=== PATIENT | female | born 1950 | race Caucasian/White ===

== ENCOUNTER 2021-05-01 08:52 | Emergency (ER) | payer MEDICAID, SELFPAY ==
[~2021-05-01 08:52] MED LIST: ALBUTEROL INH; COLA100C2 OR; COUM1TAB17 OR; COUM1TAB19; CYMB1CAP4; DETR4CAP OR; FLEXERIL OR; HYDR25TA8 OR; LEVO25TA2 OR; LOPR100T OR; LYRI150C; LYRI300C; MS C15TA5; MS C30TA2; NEXI1CAP3 OR; OXYC10TA56; OXYC10TA97; OXYC40TA19; OXYC40TA19 OR; PENT400T OR; PREG100CA OR; REQU1TAB16 OR; ROPINIROLE; SAVELLA OR; SOMA350T OR; TRAM50TA2; ZETI10TA OR
[2021-05-01] MEDS ORDERED: METOPROLOL TARTRATE 100 MG TAB PO ONE (10:10)
[2021-05-01] MEDS ORDERED: NS 1,000 ML IV ONE (10:10)
[2021-05-01 10:48] LABS: BASO % 0.1 % (0.0-1.0); HEMATOCRIT 44.7 % (36.0-47.0); HEMOGLOBIN 14.4 g/dl (12.0-15.5); LYMPH # 1.1 10^3/uL (1.5-5.0); LYMPH % 16.3 % (24.0-44.0); MEAN CORPUSCULAR HEMOGLOBIN 28.9 pg (27.0-33.0); MEAN CORPUSCULAR HGB CONC 32.2 g/dl (32.0-36.5); MEAN CORPUSCULAR VOLUME 89.6 fl (80.0-96.0); MONO # 0.3 10^3/uL (0.0-0.8); MONO % 4.2 % (2.0-8.0); NEUTROPHILS # 5.4 10^3/uL (1.5-8.5); NEUTROPHILS % 79.1 % (36.0-66.0); PLATELET COUNT, AUTOMATED 199 10^3/uL (150-450); RED BLOOD COUNT 4.99 10^6/uL (4.00-5.40); WHITE BLOOD COUNT 6.9 10^3/uL (4.0-10.0)
[2021-05-01] MEDS ORDERED: ONDANSETRON 4MG/2ML VIAL IV ONE (11:05)
[2021-05-01 11:24] LABS: ALBUMIN 3.6 GM/DL (3.2-5.2); ALT/SGPT 14 U/L (12-78); BILIRUBIN,TOTAL 0.5 MG/DL (0.2-1.0); BLOOD UREA NITROGEN 11 MG/DL (7-18); CALCIUM LEVEL 9.8 MG/DL (8.8-10.2); CARBON DIOXIDE LEVEL 28 MEQ/L (21-32); CHLORIDE LEVEL 106 MEQ/L (98-107); CK-MB VALUE MASS < 1.0 NG/ML (<3.6); CPK CREATINE PHOSPHOKINASE 66 U/L (26-192); CREATININE FOR GFR 0.91 MG/DL (0.55-1.30); GLOMERULAR FILTRATION RATE > 60.0 (>39); GLUCOSE, FASTING 135 MG/DL (70-100); LIPASE 84 U/L (73-393); MB/CK RELATIVE INDEX 1.52 (< OR =4); POTASSIUM SERUM 4.2 MEQ/L (3.5-5.1); SODIUM LEVEL 140 MEQ/L (136-145); TOTAL PROTEIN 7.5 GM/DL (6.4-8.2); TROPONIN I < 0.02 NG/ML (< 0.10)
[2021-05-01] MEDS ORDERED: LOSARTAN 50MG TABLET PO ONE (12:25)
[2021-05-01] MEDS ORDERED: ACETAMINOPHEN TAB 650MG DOSE (2X325MG) PO ONE (13:35)
--- NOTE | 2021-05-01 14:00 | ECGEPIP ---
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
[2021-05-01 15:00] VITALS: BP 183/87
== END 2021-05-01 16:06 | disposition home or self-care (01) ==
LOC: M ED 08:52 → EDBD 08:52 → M ED 16:06
DX: F03.90 Unspecified dementia, unspecified severity, without behavioral disturbance, psychotic disturbance, mood disturbance, and anxiety (principal); G89.4 Chronic pain syndrome; R10.13 Epigastric pain; I10 Essential (primary) hypertension; J44.9 Chronic obstructive pulmonary disease, unspecified; E78.5 Hyperlipidemia, unspecified; Z85.038 Personal history of other malignant neoplasm of large intestine; Z88.8 Allergy status to other drugs, medicaments and biological substances; Z91.040 Latex allergy status; Z91.041 Radiographic dye allergy status; Z79.899 Other long term (current) drug therapy
CPT/HCPCS: 80053; 82550; 82553; 83690; 84484; 85025; 93005; 94760; 96361; 96374; 99285; J2405

== ENCOUNTER 2022-07-06 14:04 | Inpatient (IN) | payer MEDICARE, OTHER, SELFPAY ==
[~2022-07-06] VITALS: Ht 165.1 cm; Wt 70.8 kg
[2022-07-06] MEDS ORDERED: IPRATROPIUM 0.5MG/ALBUTEROL 2.5MG INH SOL UD 3ML (DUONEB) NEB ONE (14:45)
[2022-07-06] MEDS ORDERED: methylPREDNISolone 125MG 2ML VIAL IV ONE (14:50)
[2022-07-06 15:06] LABS: ABG BASE EXCESS 6.2 (-2.0-2.0); ABG HCO3 30.9 MEQ/L (22.0-26.0); ABG O2 SATURATION 95.2 % (95.0-99.0); ABG PARTIAL PRESSURE CO2 44.7 mmHg (35.0-45.0); ABG PARTIAL PRESSURE O2 71.1 mmHg (75.0-100.0); ABG STANDARD HCO3 30.1 MEQ/L (22.0-26.0); ABG TOTAL CO2 32.3 MEQ/L (23.0-31.0); ABG pH (ARTERIAL) 7.458 UNITS (7.350-7.450)
[2022-07-06 15:14] LABS: BASO % 0.2 % (0.0-1.0); EOS % 0.2 % (0.0-3.0); HEMATOCRIT 40.2 % (36.0-47.0); HEMOGLOBIN 12.9 g/dl (12.0-15.5); LYMPH # 1.2 10^3/uL (1.5-5.0); LYMPH % 7.1 % (24.0-44.0); MEAN CORPUSCULAR HEMOGLOBIN 29.1 pg (27.0-33.0); MEAN CORPUSCULAR HGB CONC 32.1 g/dl (32.0-36.5); MEAN CORPUSCULAR VOLUME 90.7 fl (80.0-96.0); MONO # 1.5 10^3/uL (0.0-0.8); MONO % 9.1 % (2.0-8.0); NEUTROPHILS # 13.5 10^3/uL (1.5-8.5); NEUTROPHILS % 82.9 % (36.0-66.0); PLATELET COUNT, AUTOMATED 268 10^3/uL (150-450); RED BLOOD COUNT 4.43 10^6/uL (4.00-5.40); WHITE BLOOD COUNT 16.2 10^3/uL (4.0-10.0)
[2022-07-06 15:24] LABS: INR 1.11; PARTIAL THROMBOPLASTIN TIME 27.2 SECONDS (24.8-34.2); PROTHROMBIN TIME 14.5 SECONDS (12.5-14.5)
[2022-07-06 15:27] LABS: D-DIMER QUANT 529.6 ng/ml (<500)
[2022-07-06 16:34] LABS: ALKALINE PHOSPHATASE 88 U/L (46-116); ALT/SGPT 13 U/L (7.0-40); AST/SGOT 23 U/L (<34); BILIRUBIN,DIRECT 0.1 MG/DL (<0.4); BILIRUBIN,TOTAL 0.3 MG/DL (0.3-1.2); BLOOD UREA NITROGEN 9 MG/DL (9-23); CALCIUM LEVEL 8.9 MG/DL (8.3-10.6); CARBON DIOXIDE LEVEL 33 MMOL/L (20-31); CHLORIDE LEVEL 94 MMOL/L (98-107); CK-MB VALUE MASS 1.3 NG/ML (<3.6); CPK CREATINE PHOSPHOKINASE 240 U/L (34-145); CREATININE FOR GFR 0.75 MG/DL (0.55-1.30); GLOMERULAR FILTRATION RATE > 60.0 (>39); GLUCOSE, FASTING 139 MG/DL (74-106); MB/CK RELATIVE INDEX 0.54 (< OR =4); SODIUM LEVEL 137 MMOL/L (136-145); TOTAL PROTEIN 6.4 G/DL (5.7-8.2)
[2022-07-06 17:06] LABS: CK-MB VALUE MASS 1.2 NG/ML (<3.6); MB/CK RELATIVE INDEX 0.54 (< OR =4)
[2022-07-06] MEDS ORDERED: POTASSIUM CHLORIDE 10MEQ SR TABLET PO ONE ×2 (17:15→21:10)
[2022-07-06] MEDS ORDERED: ISOVUE-370 76% 100ML VIAL As Ordered ONE (17:24)
[2022-07-06 18:46] LABS: MB/CK RELATIVE INDEX 0.44 (< OR =4)
[2022-07-06] MEDS ORDERED: AZITHROMYCIN INJ 500 MG, VIAL MATE ADAPTER 1 EACH in NS 250 ML IV ONE (19:05)
[2022-07-06] MEDS ORDERED: cefTRIAXone SOD 1 GM in D5W MINI-BAG PLUS 50 ML IV ONE (19:05)
[2022-07-06] MEDS ORDERED: med rec comment (20:08)
[2022-07-06] MEDS ORDERED: AMLO1TAB24 PO (20:12)
[2022-07-06] MEDS ORDERED: METO50TA7 PO (20:12)
[2022-07-06] MEDS ORDERED: DULO1CAP5 PO (20:12)
[2022-07-06] MEDS ORDERED: OMEP-173 PO (20:12)
[2022-07-06] MEDS ORDERED: HOME MED LIST COMPLETE! XX SCH (20:15)
[2022-07-06] MEDS ORDERED: AZITHROMYCIN 250MG TABLET PO SCH (20:55)
[2022-07-06] MEDS ORDERED: ALBUTEROL SULFATE 2.5 MG/0.5 ML INH NEB SOLN NEB PRN (20:55)
[2022-07-06 21:35] VITALS: BP 138/78
[2022-07-06 22:00] VITALS: O2SAT 95
[2022-07-06] MEDS: NS 1,000 ML IV SCH (22:11)
[2022-07-06] MEDS: DOXYCYCLINE HYCLATE 100MG TABLET PO SCH (22:25)
[2022-07-06 23:00] VITALS: O2SAT 93
[2022-07-06 23:07] LABS: CREATININE FOR GFR 0.63 MG/DL (0.55-1.30); GLOMERULAR FILTRATION RATE > 60.0 (>39)
[2022-07-06] MEDS: ENOXAPARIN 80MG/0.8ML SYRINGE (J1650 PER 10MG) SC SCH (23:24)
[2022-07-07] VITALS (10 sets, daily range): BP systolic 124–160; BP diastolic 72–86; O2SAT 89–98
[2022-07-07] MEDS: IPRATROPIUM 0.5MG/ALBUTEROL 2.5MG INH SOL UD 3ML (DUONEB) NEB SCH ×4 (01:11→20:39)
[2022-07-07] MEDS: NS 1,000 ML IV SCH (06:12)
[2022-07-07] MEDS ORDERED: SYMBICORT 160/4.5MCG INHALER 6GM INH SCH (08:00)
[2022-07-07 08:21] LABS: BLOOD UREA NITROGEN 10 MG/DL (9-23); CARBON DIOXIDE LEVEL 33 MMOL/L (20-31); CHLORIDE LEVEL 102 MMOL/L (98-107); CREATININE FOR GFR 0.69 MG/DL (0.55-1.30); GLOMERULAR FILTRATION RATE > 60.0 (>39); GLUCOSE, FASTING 136 MG/DL (74-106); MAGNESIUM LEVEL 1.7 MG/DL (1.8-2.4); POTASSIUM SERUM 3.5 MMOL/L (3.5-5.1); SODIUM LEVEL 143 MMOL/L (136-145)
[2022-07-07] MEDS: MAGNESIUM OXIDE 400MG TAB (MAG-OX) PO SCH ×3 (10:19→20:10)
[2022-07-07] MEDS: DOXYCYCLINE HYCLATE 100MG TABLET PO SCH ×2 (10:19→20:10)
[2022-07-07] MEDS: OMEPRAZOLE 20MG CAP PO SCH (10:19)
[2022-07-07] MEDS: DULoxetine 30MG CAPSULE (CYMBALTA) PO SCH (10:19)
[2022-07-07] MEDS: guaiFENesin ER 600 MG TAB PO SCH ×2 (10:19→20:10)
[2022-07-07] MEDS: predniSONE 20 MG TAB PO SCH (10:24)
[2022-07-07] MEDS: ENOXAPARIN 80MG/0.8ML SYRINGE (J1650 PER 10MG) SC SCH (10:24)
[2022-07-07] MEDS: ACETAMINOPHEN TAB 650MG DOSE (2X325MG) PO PRN (16:30)
[2022-07-07] MEDS ORDERED: cefTRIAXone SOD 1 GM in D5W MINI-BAG PLUS 50 ML IV SCH (20:00)
[2022-07-08] VITALS: BP 156/79
[2022-07-08] MEDS: IPRATROPIUM 0.5MG/ALBUTEROL 2.5MG INH SOL UD 3ML (DUONEB) NEB SCH ×4 (02:36→20:00)
[2022-07-08] MEDS: ACETAMINOPHEN TAB 650MG DOSE (2X325MG) PO PRN ×2 (03:22→11:24)
[2022-07-08 04:00] VITALS: BP 164/90
[2022-07-08 06:23] LABS: MEAN CORPUSCULAR HGB CONC 32.1 g/dl (32.0-36.5); MEAN CORPUSCULAR VOLUME 90.4 fl (80.0-96.0); PLATELET COUNT, AUTOMATED 271 10^3/uL (150-450); RED BLOOD COUNT 3.76 10^6/uL (4.00-5.40); WHITE BLOOD COUNT 15.3 10^3/uL (4.0-10.0)
[2022-07-08 06:48] LABS: BLOOD UREA NITROGEN 17 MG/DL (9-23); CALCIUM LEVEL 8.6 MG/DL (8.3-10.6); CARBON DIOXIDE LEVEL 30 MMOL/L (20-31); CHLORIDE LEVEL 103 MMOL/L (98-107); GLOMERULAR FILTRATION RATE > 60.0 (>39); GLUCOSE, FASTING 98 MG/DL (74-106); SODIUM LEVEL 143 MMOL/L (136-145)
[2022-07-08 06:51] LABS: HEMOGLOBIN 10.9 g/dl (12.0-15.5)
[2022-07-08 07:48] VITALS: BP 162/84
[2022-07-08 07:58] LABS: MAGNESIUM LEVEL 1.6 MG/DL (1.8-2.4)
[2022-07-08] MEDS ORDERED: METOPROLOL TART 50 MG TAB PO SCH ×2 (09:00→21:00)
[2022-07-08] MEDS: amLODIPine 5 MG TAB PO SCH (09:28)
[2022-07-08] MEDS: predniSONE 20 MG TAB PO SCH (09:29)
[2022-07-08] MEDS: MAGNESIUM OXIDE 400MG TAB (MAG-OX) PO SCH ×4 (09:29→21:36)
[2022-07-08] MEDS: DOXYCYCLINE HYCLATE 100MG TABLET PO SCH ×2 (09:29→21:36)
[2022-07-08] MEDS: OMEPRAZOLE 20MG CAP PO SCH (09:29)
[2022-07-08] MEDS: DULoxetine 30MG CAPSULE (CYMBALTA) PO SCH (09:29)
[2022-07-08] MEDS: guaiFENesin ER 600 MG TAB PO SCH ×2 (09:29→21:36)
[2022-07-08] MEDS: POTASSIUM CHLORIDE 10MEQ SR TABLET PO SCH ×4 (09:30→21:36)
[2022-07-08] MEDS: TIOTROPIUM INHALER/CAPSULE (SPIRIVA) INH SCH (10:50)
[2022-07-08] MEDS: AMIODARONE 200 MG TAB (PACERONE) PO SCH ×2 (11:23→21:36)
[2022-07-08] MEDS: APIXABAN 5 MG TAB (ELIQUIS) PO SCH ×2 (11:23→21:36)
[2022-07-08] MEDS ORDERED: MAGNESIUM OXIDE 400MG TAB (MAG-OX) PO ONE (11:35)
[2022-07-08 12:00] VITALS: BP 155/79
[2022-07-08] MEDS: AUGMENTIN 875 MG TAB PO SCH ×2 (13:29→21:36)
[2022-07-08 16:00] VITALS: BP 153/89
[2022-07-08 20:00] VITALS: BP 164/94
[2022-07-09] VITALS: BP 160/90
[2022-07-09] MEDS: IPRATROPIUM 0.5MG/ALBUTEROL 2.5MG INH SOL UD 3ML (DUONEB) NEB SCH ×3 (02:00→13:17)
[2022-07-09 04:00] VITALS: BP 146/71
[2022-07-09 07:43] LABS: HEMATOCRIT 37.3 % (36.0-47.0); HEMOGLOBIN 11.8 g/dl (12.0-15.5); MEAN CORPUSCULAR HEMOGLOBIN 28.9 pg (27.0-33.0); MEAN CORPUSCULAR HGB CONC 31.6 g/dl (32.0-36.5); MEAN CORPUSCULAR VOLUME 91.4 fl (80.0-96.0); PLATELET COUNT, AUTOMATED 291 10^3/uL (150-450); RED BLOOD COUNT 4.08 10^6/uL (4.00-5.40); WHITE BLOOD COUNT 10.5 10^3/uL (4.0-10.0)
[2022-07-09 08:00] VITALS: BP 175/95
[2022-07-09 08:06] LABS: CHLORIDE LEVEL 101 MMOL/L (98-107); SODIUM LEVEL 140 MMOL/L (136-145)
[2022-07-09 08:07] LABS: CARBON DIOXIDE LEVEL 32 MMOL/L (20-31)
[2022-07-09 08:12] LABS: BLOOD UREA NITROGEN 16 MG/DL (9-23); CALCIUM LEVEL 9.2 MG/DL (8.3-10.6); GLUCOSE, FASTING 93 MG/DL (74-106)
[2022-07-09 08:13] LABS: MAGNESIUM LEVEL 1.8 MG/DL (1.8-2.4)
[2022-07-09 08:15] LABS: CREATININE FOR GFR 0.77 MG/DL (0.55-1.30); GLOMERULAR FILTRATION RATE > 60.0 (>39)
[2022-07-09 08:17] LABS: POTASSIUM SERUM 4.2 MMOL/L (3.5-5.1)
[2022-07-09] MEDS: TIOTROPIUM INHALER/CAPSULE (SPIRIVA) INH SCH (08:18)
[2022-07-09] MEDS ORDERED: MAGNESIUM OXIDE 400MG TAB (MAG-OX) PO SCH (09:00)
[2022-07-09] MEDS: AUGMENTIN 875 MG TAB PO SCH (10:02)
[2022-07-09] MEDS: DULoxetine 30MG CAPSULE (CYMBALTA) PO SCH (10:02)
[2022-07-09 10:03] VITALS: BP 175/95
[2022-07-09] MEDS: AMIODARONE 200 MG TAB (PACERONE) PO SCH (10:03)
[2022-07-09] MEDS: amLODIPine 5 MG TAB PO SCH (10:03)
[2022-07-09] MEDS: DOXYCYCLINE HYCLATE 100MG TABLET PO SCH (10:04)
[2022-07-09] MEDS: predniSONE 20 MG TAB PO SCH (10:04)
[2022-07-09] MEDS: OMEPRAZOLE 20MG CAP PO SCH (10:05)
[2022-07-09] MEDS: guaiFENesin ER 600 MG TAB PO SCH (10:05)
[2022-07-09] MEDS: APIXABAN 5 MG TAB (ELIQUIS) PO SCH (10:05)
[2022-07-09] MEDS ORDERED: AMOX875T2 PO (10:36)
[2022-07-09] MEDS ORDERED: AMIO400T7 PO (10:36)
[2022-07-09] MEDS ORDERED: MUCI600T31 PO (10:36)
[2022-07-09] MEDS ORDERED: PRED20TA PO ×2 (10:36→10:38)
[2022-07-09] MEDS ORDERED: ELIQ5TAB PO (10:36)
[2022-07-09] MEDS ORDERED: AMLO1TAB24 PO (10:36)
[2022-07-09] MEDS ORDERED: TIOT18INH INH (10:36)
[2022-07-09] MEDS ORDERED: MAGN400T2 PO (10:36)
[2022-07-09] MEDS ORDERED: VENTAER INH (10:36)
[2022-07-09] MEDS ORDERED: DOXY100T PO (10:38)
[2022-07-09 12:00] VITALS: BP 164/95
[2022-07-09] MEDS ORDERED: INCR1INH INH (12:17)
== END 2022-07-09 15:08 | disposition home health service (06) | DRG 194 ==
LOC: EDBD 14:04 → M ED 14:04 → M ED INP 20:23 → M PCU 21:39
PROVIDERS: ADMIT Family Medicine; ATTEND Internal Medicine Nephrology
PROC: B246ZZZ Ultrasonography of Right and Left Heart (ICD-10-PCS; principal; 2022-07-07)
DX: J12.1 Respiratory syncytial virus pneumonia (principal); J44.0 Chronic obstructive pulmonary disease with (acute) lower respiratory infection; J44.1 Chronic obstructive pulmonary disease with (acute) exacerbation; I27.82 Chronic pulmonary embolism; J96.11 Chronic respiratory failure with hypoxia; R65.10 Systemic inflammatory response syndrome (SIRS) of non-infectious origin without acute organ dysfunction; F03.90 Unspecified dementia, unspecified severity, without behavioral disturbance, psychotic disturbance, mood disturbance, and anxiety; I49.9 Cardiac arrhythmia, unspecified; F32.A Depression, unspecified; I48.0 Paroxysmal atrial fibrillation; I10 Essential (primary) hypertension; E83.42 Hypomagnesemia; K21.9 Gastro-esophageal reflux disease without esophagitis; F10.11 Alcohol abuse, in remission; E87.6 Hypokalemia; Z79.899 Other long term (current) drug therapy; Z88.8 Allergy status to other drugs, medicaments and biological substances; Z91.040 Latex allergy status; Z91.041 Radiographic dye allergy status; Z87.891 Personal history of nicotine dependence; Z99.81 Dependence on supplemental oxygen

== ENCOUNTER 2023-04-12 15:11 | Inpatient (IN) | payer MEDICARE ==
[~2023-04-12] VITALS: Ht 157.5 cm; Wt 62.0 kg
[~2023-04-12 15:11] MED LIST changes: +AMIO400T2 PO; +AMLO1TAB24 PO; +AMOX875T2 PO; +DOXY100T PO; +DULO1CAP5 PO; +ELIQ5TAB PO; +INCR1INH INH; +MAGN400T2 PO; +METO50TA7 PO; +MUCI600T31 PO; +OMEP-173 PO; +PRED20TA PO; +TIOT18INH INH; +VENTAER INH; +med rec comment
[2023-04-12 15:41] LABS: BASO % 0.3 % (0.0-1.0); EOS % 0.3 % (0.0-3.0); HEMATOCRIT 35.8 % (36.0-47.0); HEMOGLOBIN 11.5 g/dl (12.0-15.5); LYMPH # 0.9 10^3/uL (1.5-5.0); LYMPH % 15.8 % (24.0-44.0); MEAN CORPUSCULAR HEMOGLOBIN 29.5 pg (27.0-33.0); MEAN CORPUSCULAR HGB CONC 32.1 g/dl (32.0-36.5); MEAN CORPUSCULAR VOLUME 91.8 fl (80.0-96.0); MONO # 0.4 10^3/uL (0.0-0.8); MONO % 6.1 % (2.0-8.0); NEUTROPHILS # 4.5 10^3/uL (1.5-8.5); NEUTROPHILS % 76.5 % (36.0-66.0); PLATELET COUNT, AUTOMATED 168 10^3/uL (150-450); WHITE BLOOD COUNT 5.9 10^3/uL (4.0-10.0)
[2023-04-12] MEDS ORDERED: NS 500 ML IV ONE (16:05)
[2023-04-12 16:13] LABS: CALCIUM LEVEL 9.2 MG/DL (8.3-10.6); CREATININE FOR GFR 1.29 MG/DL (0.55-1.30); FREE T4 1.1 NG/DL (0.89-1.76); GLOMERULAR FILTRATION RATE 43.2 (>39); MAGNESIUM LEVEL 1.6 MG/DL (1.8-2.4); POTASSIUM SERUM 2.7 MMOL/L (3.5-5.1); THYROID STIMULATING HORMONE 4.793 uIU/ML (0.55-4.78)
[2023-04-12] MEDS ORDERED: KCL 10MEQ/100ML SWI (KRUN) 10 MEQ in IV 1 EA IV ONE (16:15)
[2023-04-12] MEDS ORDERED: MAG SULF 1GM/100ML (MAG RUN) 1 GM in IV 1 EA IV ONE (16:25)
[2023-04-12] MEDS ORDERED: POTASSIUM CHLORIDE 10MEQ SR TABLET PO ONE (16:30)
[2023-04-12] MEDS: NS 1,000 ML IV SCH ×2 (16:32→17:12)
[2023-04-12 16:52] LABS: RSV AMPLIFICATION NEGATIVE (NEGATIVE)
[2023-04-12 16:57] LABS: ALBUMIN 3.7 G/DL (3.2-5.2); BILIRUBIN,DIRECT 0.2 MG/DL (<0.4); BILIRUBIN,TOTAL 0.5 MG/DL (0.3-1.2); TOTAL PROTEIN 6.2 G/DL (5.7-8.2)
[2023-04-12] MEDS ORDERED: AMIO200T49 PO (17:58)
[2023-04-12] MEDS ORDERED: INCR1INH INH (17:58)
[2023-04-12] MEDS ORDERED: AMLO1TAB24 PO (17:58)
[2023-04-12] MEDS ORDERED: ATOR40TA75 PO (17:58)
[2023-04-12] MEDS ORDERED: D 1010004 PO (17:58)
[2023-04-12] MEDS ORDERED: ALBU8.5H INH (17:58)
[2023-04-12] MEDS ORDERED: MUCI600T31 PO (17:58)
[2023-04-12] MEDS ORDERED: HOME MED LIST COMPLETE! XX SCH (18:00)
[2023-04-12] MEDS ORDERED: MOM 30ML SUSPENSION UDC PO PRN (18:20)
[2023-04-12] MEDS ORDERED: MAALOX 30 ML SUSP *UDC PO PRN (18:20)
[2023-04-12] MEDS ORDERED: ALBUTEROL 90 MCG/ACT 8GM HFA INHALER INH PRN (18:35)
[2023-04-12 20:03] VITALS: BP 138/71; TEMP 99; O2SAT 98
[2023-04-12 20:22] LABS: CALCIUM LEVEL 8.9 MG/DL (8.3-10.6); CREATININE FOR GFR 1.1 MG/DL (0.55-1.30); POTASSIUM SERUM 3.5 MMOL/L (3.5-5.1); TOTAL 25(OH) VITAMIN D 14.3 NG/ML (20.0-100.0)
[2023-04-12] MEDS: guaiFENesin ER 600 MG TAB PO SCH (21:00)
[2023-04-12] MEDS: amLODIPine 5 MG TAB PO SCH (21:39)
[2023-04-12 22:47] VITALS: BP 137/71; O2SAT 95
[2023-04-13 00:51] LABS: CREATININE FOR GFR 1.03 MG/DL (0.55-1.30); GLOMERULAR FILTRATION RATE 56.1 (>39); POTASSIUM SERUM 4.3 MMOL/L (3.5-5.1)
[2023-04-13 05:47] VITALS: BP 138/71; TEMP 98.8; O2SAT 97
[2023-04-13 05:50] LABS: BASO % 0.5 % (0.0-1.0); EOS % 0.5 % (0.0-3.0); HEMATOCRIT 35.3 % (36.0-47.0); HEMOGLOBIN 11.1 g/dl (12.0-15.5); LYMPH # 1.3 10^3/uL (1.5-5.0); LYMPH % 20.1 % (24.0-44.0); MEAN CORPUSCULAR HEMOGLOBIN 29.1 pg (27.0-33.0); MEAN CORPUSCULAR HGB CONC 31.4 g/dl (32.0-36.5); MEAN CORPUSCULAR VOLUME 92.7 fl (80.0-96.0); MONO # 0.6 10^3/uL (0.0-0.8); MONO % 9.2 % (2.0-8.0); NEUTROPHILS # 4.5 10^3/uL (1.5-8.5); NEUTROPHILS % 69.4 % (36.0-66.0); PLATELET COUNT, AUTOMATED 163 10^3/uL (150-450); RED BLOOD COUNT 3.81 10^6/uL (4.00-5.40); WHITE BLOOD COUNT 6.4 10^3/uL (4.0-10.0)
[2023-04-13 06:09] LABS: CALCIUM LEVEL 8.9 MG/DL (8.3-10.6); CREATININE FOR GFR 0.99 MG/DL (0.55-1.30); GLOMERULAR FILTRATION RATE 58.7 (>39); POTASSIUM SERUM 3.8 MMOL/L (3.5-5.1)
[2023-04-13 07:55] VITALS: BP 141/69; TEMP 98.3; O2SAT 100
[2023-04-13] MEDS: amLODIPine 5 MG TAB PO SCH ×2 (09:00→20:15)
[2023-04-13] MEDS ORDERED: AMIODARONE 200 MG TAB (PACERONE) PO SCH (09:00)
[2023-04-13] MEDS: OMEPRAZOLE 20MG CAP PO SCH (09:20)
[2023-04-13] MEDS: POTASSIUM CHLORIDE 10MEQ SR TABLET PO SCH (09:20)
[2023-04-13] MEDS: VITAMIN D 1,000 INTERNATIONAL UNITS TABLET PO SCH (09:20)
[2023-04-13] MEDS: DULoxetine 30MG CAPSULE (CYMBALTA) PO SCH (09:20)
[2023-04-13] MEDS: guaiFENesin ER 600 MG TAB PO SCH ×2 (09:21→20:14)
[2023-04-13] MEDS: ATORVASTATIN 20 MG TAB PO SCH (09:21)
[2023-04-13 12:35] VITALS: BP 121/59; TEMP 97.6; O2SAT 96
[2023-04-13 16:00] VITALS: BP 122/67; TEMP 98; O2SAT 97
[2023-04-13 20:00] VITALS: BP 150/88; TEMP 97.1; O2SAT 98
[2023-04-13] MEDS: ENOXAPARIN 40MG/0.4ML SYRINGE (J1650 PER 10MG) SC SCH (20:14)
[2023-04-13] MEDS: RAMELTEON 8 MG TAB (ROZEREM) PO PRN (20:14)
[2023-04-13 23:48] VITALS: BP 130/65; TEMP 98; O2SAT 98
[2023-04-14 04:00] VITALS: BP 124/62; TEMP 97.8; O2SAT 94
[2023-04-14 06:32] LABS: BASO % 0.4 % (0.0-1.0); EOS # 0.1 10^3/uL (0.0-0.5); EOS % 0.9 % (0.0-3.0); HEMATOCRIT 36.8 % (36.0-47.0); HEMOGLOBIN 11.7 g/dl (12.0-15.5); LYMPH # 1.4 10^3/uL (1.5-5.0); LYMPH % 18.2 % (24.0-44.0); MEAN CORPUSCULAR HEMOGLOBIN 29.8 pg (27.0-33.0); MEAN CORPUSCULAR HGB CONC 31.8 g/dl (32.0-36.5); MEAN CORPUSCULAR VOLUME 93.9 fl (80.0-96.0); MONO # 0.7 10^3/uL (0.0-0.8); MONO % 9.4 % (2.0-8.0); NEUTROPHILS # 5.4 10^3/uL (1.5-8.5); NEUTROPHILS % 70.8 % (36.0-66.0); PLATELET COUNT, AUTOMATED 146 10^3/uL (150-450); RED BLOOD COUNT 3.92 10^6/uL (4.00-5.40); WHITE BLOOD COUNT 7.6 10^3/uL (4.0-10.0)
[2023-04-14 06:54] LABS: BLOOD UREA NITROGEN 13 MG/DL (9-23); CALCIUM LEVEL 8.5 MG/DL (8.3-10.6); CARBON DIOXIDE LEVEL 29 MMOL/L (20-31); CHLORIDE LEVEL 108 MMOL/L (98-107); CREATININE FOR GFR 0.97 MG/DL (0.55-1.30); GLOMERULAR FILTRATION RATE > 60.0 (>39); GLUCOSE, FASTING 92 MG/DL (74-106); MAGNESIUM LEVEL 1.6 MG/DL (1.8-2.4); POTASSIUM SERUM 3.7 MMOL/L (3.5-5.1); SODIUM LEVEL 144 MMOL/L (136-145)
[2023-04-14] MEDS: OMEPRAZOLE 20MG CAP PO SCH (08:56)
[2023-04-14] MEDS: DULoxetine 30MG CAPSULE (CYMBALTA) PO SCH (08:56)
[2023-04-14] MEDS: guaiFENesin ER 600 MG TAB PO SCH ×2 (08:57→20:30)
[2023-04-14] MEDS: ATORVASTATIN 20 MG TAB PO SCH (08:57)
[2023-04-14] MEDS: VITAMIN D 1,000 INTERNATIONAL UNITS TABLET PO SCH (08:57)
[2023-04-14] MEDS: amLODIPine 5 MG TAB PO SCH ×2 (08:57→20:30)
[2023-04-14] MEDS: POTASSIUM CHLORIDE 10MEQ SR TABLET PO SCH (08:57)
[2023-04-14 09:30] VITALS: BP 111/73; TEMP 97.6; O2SAT 97
[2023-04-14] MEDS: MAG SULF 1GM/100ML (MAG RUN) 1 GM in IV 1 EA IV SCH ×2 (11:54→13:33)
[2023-04-14 12:12] VITALS: BP 102/59; TEMP 97.4; O2SAT 97
[2023-04-14 15:59] VITALS: BP 126/65; TEMP 97.4; O2SAT 97
[2023-04-14 20:00] VITALS: BP 134/77; TEMP 97.8; O2SAT 96
[2023-04-14] MEDS: RAMELTEON 8 MG TAB (ROZEREM) PO PRN (20:29)
[2023-04-14] MEDS: ENOXAPARIN 40MG/0.4ML SYRINGE (J1650 PER 10MG) SC SCH (20:30)
[2023-04-14 23:46] VITALS: BP 134/67; TEMP 97.1; O2SAT 98
[2023-04-15] MEDS ORDERED: diphenhydrAMINE 50MG/ML VIAL IM ONE (02:00)
[2023-04-15 04:00] VITALS: BP 132/63; TEMP 96.5; O2SAT 98
[2023-04-15 06:17] LABS: BASO % 0.5 % (0.0-1.0); EOS # 0.1 10^3/uL (0.0-0.5); EOS % 1.1 % (0.0-3.0); HEMATOCRIT 36.1 % (36.0-47.0); HEMOGLOBIN 11.4 g/dl (12.0-15.5); LYMPH # 1.2 10^3/uL (1.5-5.0); LYMPH % 18.8 % (24.0-44.0); MEAN CORPUSCULAR HEMOGLOBIN 29.5 pg (27.0-33.0); MEAN CORPUSCULAR HGB CONC 31.6 g/dl (32.0-36.5); MEAN CORPUSCULAR VOLUME 93.3 fl (80.0-96.0); MONO # 0.5 10^3/uL (0.0-0.8); MONO % 7.6 % (2.0-8.0); NEUTROPHILS # 4.4 10^3/uL (1.5-8.5); NEUTROPHILS % 71.5 % (36.0-66.0); PLATELET COUNT, AUTOMATED 149 10^3/uL (150-450); RED BLOOD COUNT 3.87 10^6/uL (4.00-5.40); WHITE BLOOD COUNT 6.2 10^3/uL (4.0-10.0)
[2023-04-15 06:44] LABS: CALCIUM LEVEL 8.6 MG/DL (8.3-10.6); CREATININE FOR GFR 0.99 MG/DL (0.55-1.30); GLOMERULAR FILTRATION RATE 58.7 (>39); MAGNESIUM LEVEL 1.8 MG/DL (1.8-2.4); POTASSIUM SERUM 3.7 MMOL/L (3.5-5.1)
[2023-04-15 08:00] VITALS: BP 108/70; TEMP 96.9; O2SAT 97
[2023-04-15] MEDS ORDERED: ATROPINE SULF 1MG/10ML SYRINGE IV PRN (08:05)
[2023-04-15] MEDS: VITAMIN D 1,000 INTERNATIONAL UNITS TABLET PO SCH (09:05)
[2023-04-15] MEDS: ATORVASTATIN 20 MG TAB PO SCH (09:05)
[2023-04-15] MEDS: POTASSIUM CHLORIDE 10MEQ SR TABLET PO SCH (09:05)
[2023-04-15] MEDS: OMEPRAZOLE 20MG CAP PO SCH (09:05)
[2023-04-15] MEDS: amLODIPine 5 MG TAB PO SCH ×2 (09:06→20:00)
[2023-04-15] MEDS: guaiFENesin ER 600 MG TAB PO SCH ×2 (09:06→20:00)
[2023-04-15] MEDS: DULoxetine 30MG CAPSULE (CYMBALTA) PO SCH (09:06)
[2023-04-15 13:39] VITALS: BP 111/58; TEMP 97.3; O2SAT 96
[2023-04-15 19:30] VITALS: BP 127/64; TEMP 97.8; O2SAT 94
[2023-04-15] MEDS: RAMELTEON 8 MG TAB (ROZEREM) PO PRN (20:00)
[2023-04-15] MEDS: ENOXAPARIN 40MG/0.4ML SYRINGE (J1650 PER 10MG) SC SCH (20:00)
[2023-04-15 23:35] VITALS: BP 118/65; TEMP 97.9; O2SAT 96
[2023-04-16 04:40] VITALS: BP 132/74; TEMP 98.1; O2SAT 97
[2023-04-16 06:08] LABS: BASO % 0.5 % (0.0-1.0); EOS # 0.1 10^3/uL (0.0-0.5); EOS % 1.6 % (0.0-3.0); HEMATOCRIT 36.8 % (36.0-47.0); HEMOGLOBIN 11.6 g/dl (12.0-15.5); LYMPH # 1.4 10^3/uL (1.5-5.0); MEAN CORPUSCULAR HEMOGLOBIN 29.4 pg (27.0-33.0); MEAN CORPUSCULAR HGB CONC 31.5 g/dl (32.0-36.5); MEAN CORPUSCULAR VOLUME 93.4 fl (80.0-96.0); MONO # 0.5 10^3/uL (0.0-0.8); NEUTROPHILS # 4.1 10^3/uL (1.5-8.5); NEUTROPHILS % 66.7 % (36.0-66.0); PLATELET COUNT, AUTOMATED 164 10^3/uL (150-450); RED BLOOD COUNT 3.94 10^6/uL (4.00-5.40); WHITE BLOOD COUNT 6.1 10^3/uL (4.0-10.0)
[2023-04-16 06:30] LABS: CALCIUM LEVEL 9.3 MG/DL (8.3-10.6); CREATININE FOR GFR 1.12 MG/DL (0.55-1.30); GLOMERULAR FILTRATION RATE 50.9 (>39); MAGNESIUM LEVEL 1.8 MG/DL (1.8-2.4); POTASSIUM SERUM 4.6 MMOL/L (3.5-5.1)
[2023-04-16 08:00] VITALS: BP 122/58; TEMP 97.4; O2SAT 96
[2023-04-16] MEDS: DULoxetine 30MG CAPSULE (CYMBALTA) PO SCH (10:31)
[2023-04-16] MEDS: guaiFENesin ER 600 MG TAB PO SCH ×2 (10:32→21:18)
[2023-04-16] MEDS: VITAMIN D 1,000 INTERNATIONAL UNITS TABLET PO SCH (10:32)
[2023-04-16] MEDS: POTASSIUM CHLORIDE 10MEQ SR TABLET PO SCH (10:32)
[2023-04-16] MEDS: ATORVASTATIN 20 MG TAB PO SCH (10:32)
[2023-04-16] MEDS: amLODIPine 5 MG TAB PO SCH ×2 (10:32→21:18)
[2023-04-16] MEDS: OMEPRAZOLE 20MG CAP PO SCH (10:33)
[2023-04-16 11:54] VITALS: BP 112/64; TEMP 97.9; O2SAT 94
[2023-04-16 15:28] VITALS: BP 126/68; TEMP 97.6; O2SAT 97
[2023-04-16 20:00] VITALS: BP 133/71; TEMP 97.4; O2SAT 96
[2023-04-16] MEDS: ENOXAPARIN 40MG/0.4ML SYRINGE (J1650 PER 10MG) SC SCH (21:19)
[2023-04-16] MEDS: RAMELTEON 8 MG TAB (ROZEREM) PO PRN (22:39)
[2023-04-17] VITALS (8 sets, daily range): BP systolic 103–175; BP diastolic 62–79; TEMP 97.2–97.9; O2SAT 94–98
[2023-04-17 06:15] LABS: BASO % 0.5 % (0.0-1.0); EOS # 0.1 10^3/uL (0.0-0.5); EOS % 1.3 % (0.0-3.0); HEMATOCRIT 38.5 % (36.0-47.0); HEMOGLOBIN 12.4 g/dl (12.0-15.5); LYMPH # 1.3 10^3/uL (1.5-5.0); LYMPH % 20.6 % (24.0-44.0); MEAN CORPUSCULAR HEMOGLOBIN 29.9 pg (27.0-33.0); MEAN CORPUSCULAR HGB CONC 32.2 g/dl (32.0-36.5); MEAN CORPUSCULAR VOLUME 92.8 fl (80.0-96.0); MONO # 0.5 10^3/uL (0.0-0.8); MONO % 7.9 % (2.0-8.0); NEUTROPHILS # 4.3 10^3/uL (1.5-8.5); NEUTROPHILS % 69.4 % (36.0-66.0); PLATELET COUNT, AUTOMATED 173 10^3/uL (150-450); RED BLOOD COUNT 4.15 10^6/uL (4.00-5.40); WHITE BLOOD COUNT 6.2 10^3/uL (4.0-10.0)
[2023-04-17 06:41] LABS: CALCIUM LEVEL 9.5 MG/DL (8.3-10.6); CREATININE FOR GFR 1.03 MG/DL (0.55-1.30); GLOMERULAR FILTRATION RATE 56.1 (>39); MAGNESIUM LEVEL 1.8 MG/DL (1.8-2.4); POTASSIUM SERUM 3.9 MMOL/L (3.5-5.1)
[2023-04-17] MEDS: VITAMIN D 1,000 INTERNATIONAL UNITS TABLET PO SCH (08:55)
[2023-04-17] MEDS: ATORVASTATIN 20 MG TAB PO SCH (08:56)
[2023-04-17] MEDS: POTASSIUM CHLORIDE 10MEQ SR TABLET PO SCH (08:56)
[2023-04-17] MEDS: ACETAMINOPHEN TAB 650MG DOSE (2X325MG) PO PRN (08:59)
[2023-04-17] MEDS: OMEPRAZOLE 20MG CAP PO SCH (09:00)
[2023-04-17] MEDS: guaiFENesin ER 600 MG TAB PO SCH ×2 (09:00→20:41)
[2023-04-17] MEDS: amLODIPine 5 MG TAB PO SCH ×2 (09:00→20:41)
[2023-04-17] MEDS: DULoxetine 30MG CAPSULE (CYMBALTA) PO SCH (09:00)
[2023-04-17] MEDS: RAMELTEON 8 MG TAB (ROZEREM) PO PRN (20:39)
[2023-04-17] MEDS: ENOXAPARIN 40MG/0.4ML SYRINGE (J1650 PER 10MG) SC SCH (20:41)
[2023-04-18 03:43] VITALS: BP 120/62; TEMP 98.1; O2SAT 95
[2023-04-18 06:55] LABS: BASO % 0.3 % (0.0-1.0); EOS # 0.2 10^3/uL (0.0-0.5); EOS % 2.5 % (0.0-3.0); HEMATOCRIT 36.1 % (36.0-47.0); HEMOGLOBIN 11.8 g/dl (12.0-15.5); LYMPH # 1.7 10^3/uL (1.5-5.0); LYMPH % 28.9 % (24.0-44.0); MEAN CORPUSCULAR HEMOGLOBIN 30.2 pg (27.0-33.0); MEAN CORPUSCULAR HGB CONC 32.7 g/dl (32.0-36.5); MEAN CORPUSCULAR VOLUME 92.3 fl (80.0-96.0); MONO # 0.5 10^3/uL (0.0-0.8); MONO % 7.7 % (2.0-8.0); NEUTROPHILS # 3.6 10^3/uL (1.5-8.5); NEUTROPHILS % 60.3 % (36.0-66.0); PLATELET COUNT, AUTOMATED 179 10^3/uL (150-450); RED BLOOD COUNT 3.91 10^6/uL (4.00-5.40)
[2023-04-18 07:29] LABS: CALCIUM LEVEL 9.2 MG/DL (8.3-10.6); CREATININE FOR GFR 1.17 MG/DL (0.55-1.30); GLOMERULAR FILTRATION RATE 48.4 (>39); MAGNESIUM LEVEL 1.8 MG/DL (1.8-2.4); POTASSIUM SERUM 4.3 MMOL/L (3.5-5.1)
[2023-04-18 08:30] VITALS: BP 116/60; TEMP 97.8; O2SAT 94
[2023-04-18] MEDS: guaiFENesin ER 600 MG TAB PO SCH ×2 (08:30→20:21)
[2023-04-18] MEDS: ATORVASTATIN 20 MG TAB PO SCH (08:30)
[2023-04-18] MEDS: POTASSIUM CHLORIDE 10MEQ SR TABLET PO SCH (08:30)
[2023-04-18] MEDS: amLODIPine 5 MG TAB PO SCH ×2 (08:31→20:21)
[2023-04-18] MEDS: OMEPRAZOLE 20MG CAP PO SCH (08:31)
[2023-04-18] MEDS: DULoxetine 30MG CAPSULE (CYMBALTA) PO SCH (08:32)
[2023-04-18] MEDS: VITAMIN D 1,000 INTERNATIONAL UNITS TABLET PO SCH (08:32)
[2023-04-18 12:12] VITALS: BP 107/60; TEMP 97.6; O2SAT 93
[2023-04-18 15:59] VITALS: BP 115/71; TEMP 97.3; O2SAT 95
[2023-04-18 20:00] VITALS: BP 157/77; TEMP 97.6; O2SAT 98
[2023-04-18] MEDS: ENOXAPARIN 40MG/0.4ML SYRINGE (J1650 PER 10MG) SC SCH (20:21)
[2023-04-18] MEDS: ACETAMINOPHEN TAB 650MG DOSE (2X325MG) PO PRN (20:31)
[2023-04-19] VITALS: BP 141/67; TEMP 97.3; O2SAT 96
[2023-04-19] MEDS: ACETAMINOPHEN TAB 650MG DOSE (2X325MG) PO PRN (03:38)
[2023-04-19 04:00] VITALS: BP 132/70; TEMP 97; O2SAT 97
[2023-04-19 07:46] VITALS: BP 111/61; TEMP 97.3; O2SAT 96
[2023-04-19 07:56] LABS: BASO % 0.4 % (0.0-1.0); EOS # 0.1 10^3/uL (0.0-0.5); EOS % 1.9 % (0.0-3.0); HEMATOCRIT 37.9 % (36.0-47.0); HEMOGLOBIN 12.1 g/dl (12.0-15.5); LYMPH # 1.2 10^3/uL (1.5-5.0); LYMPH % 23.2 % (24.0-44.0); MEAN CORPUSCULAR HEMOGLOBIN 29.7 pg (27.0-33.0); MEAN CORPUSCULAR HGB CONC 31.9 g/dl (32.0-36.5); MEAN CORPUSCULAR VOLUME 92.9 fl (80.0-96.0); MONO # 0.4 10^3/uL (0.0-0.8); NEUTROPHILS # 3.5 10^3/uL (1.5-8.5); NEUTROPHILS % 66.1 % (36.0-66.0); PLATELET COUNT, AUTOMATED 183 10^3/uL (150-450); RED BLOOD COUNT 4.08 10^6/uL (4.00-5.40); WHITE BLOOD COUNT 5.2 10^3/uL (4.0-10.0)
[2023-04-19 08:20] LABS: CALCIUM LEVEL 9.4 MG/DL (8.3-10.6); CREATININE FOR GFR 1.14 MG/DL (0.55-1.30); GLOMERULAR FILTRATION RATE 49.9 (>39); MAGNESIUM LEVEL 1.8 MG/DL (1.8-2.4)
[2023-04-19] MEDS: amLODIPine 5 MG TAB PO SCH ×2 (09:00→20:48)
[2023-04-19] MEDS: ATORVASTATIN 20 MG TAB PO SCH (09:06)
[2023-04-19] MEDS: DULoxetine 30MG CAPSULE (CYMBALTA) PO SCH (09:06)
[2023-04-19] MEDS: VITAMIN D 1,000 INTERNATIONAL UNITS TABLET PO SCH (09:07)
[2023-04-19] MEDS: OMEPRAZOLE 20MG CAP PO SCH (09:07)
[2023-04-19] MEDS: guaiFENesin ER 600 MG TAB PO SCH ×2 (09:07→20:47)
[2023-04-19] MEDS: POTASSIUM CHLORIDE 10MEQ SR TABLET PO SCH (09:07)
[2023-04-19 12:00] VITALS: BP 153/83; TEMP 97.4; O2SAT 97
[2023-04-19 19:52] VITALS: BP 126/68; TEMP 97.6; O2SAT 96
[2023-04-19] MEDS: ENOXAPARIN 40MG/0.4ML SYRINGE (J1650 PER 10MG) SC SCH (20:47)
[2023-04-20] MEDS: ACETAMINOPHEN TAB 650MG DOSE (2X325MG) PO PRN ×2 (00:06→13:08)
[2023-04-20 04:11] VITALS: BP 129/66; TEMP 97.4; O2SAT 95
[2023-04-20 06:47] LABS: CALCIUM LEVEL 9.1 MG/DL (8.3-10.6); CREATININE FOR GFR 1.14 MG/DL (0.55-1.30); GLOMERULAR FILTRATION RATE 49.9 (>39); POTASSIUM SERUM 4.1 MMOL/L (3.5-5.1)
[2023-04-20 08:15] VITALS: BP 119/73; TEMP 97.6; O2SAT 97
[2023-04-20] MEDS: amLODIPine 5 MG TAB PO SCH ×2 (09:00→20:01)
[2023-04-20] MEDS: VITAMIN D 1,000 INTERNATIONAL UNITS TABLET PO SCH (09:27)
[2023-04-20] MEDS: POTASSIUM CHLORIDE 10MEQ SR TABLET PO SCH (09:27)
[2023-04-20] MEDS: OMEPRAZOLE 20MG CAP PO SCH (09:27)
[2023-04-20] MEDS: ATORVASTATIN 20 MG TAB PO SCH (09:28)
[2023-04-20] MEDS: DULoxetine 30MG CAPSULE (CYMBALTA) PO SCH (09:28)
[2023-04-20] MEDS: guaiFENesin ER 600 MG TAB PO SCH ×2 (09:28→20:00)
[2023-04-20 11:47] VITALS: BP 121/86; TEMP 97.9; O2SAT 96
[2023-04-20 14:00] VITALS: BP 135/81; TEMP 97.1; O2SAT 97
[2023-04-20 19:59] VITALS: BP 135/72; TEMP 97.8; O2SAT 96
[2023-04-20] MEDS: ENOXAPARIN 40MG/0.4ML SYRINGE (J1650 PER 10MG) SC SCH (20:00)
[2023-04-21] MEDS: ACETAMINOPHEN TAB 650MG DOSE (2X325MG) PO PRN (04:26)
[2023-04-21 05:39] VITALS: BP 127/71; TEMP 97.9; O2SAT 97
[2023-04-21 07:00] LABS: HEMATOCRIT 36.8 % (36.0-47.0); HEMOGLOBIN 11.7 g/dl (12.0-15.5); MEAN CORPUSCULAR HEMOGLOBIN 29.7 pg (27.0-33.0); MEAN CORPUSCULAR HGB CONC 31.8 g/dl (32.0-36.5); MEAN CORPUSCULAR VOLUME 93.4 fl (80.0-96.0); PLATELET COUNT, AUTOMATED 183 10^3/uL (150-450); RED BLOOD COUNT 3.94 10^6/uL (4.00-5.40); WHITE BLOOD COUNT 4.9 10^3/uL (4.0-10.0)
[2023-04-21] MEDS: POTASSIUM CHLORIDE 10MEQ SR TABLET PO SCH (08:41)
[2023-04-21] MEDS: guaiFENesin ER 600 MG TAB PO SCH ×3 (08:42→21:24)
[2023-04-21] MEDS: DULoxetine 30MG CAPSULE (CYMBALTA) PO SCH (08:42)
[2023-04-21] MEDS: amLODIPine 5 MG TAB PO SCH ×2 (08:42→21:00)
[2023-04-21] MEDS: VITAMIN D 1,000 INTERNATIONAL UNITS TABLET PO SCH (08:42)
[2023-04-21] MEDS: ATORVASTATIN 20 MG TAB PO SCH (08:42)
[2023-04-21] MEDS: OMEPRAZOLE 20MG CAP PO SCH (08:42)
[2023-04-21 14:00] VITALS: BP 122/76; TEMP 97.9; O2SAT 98
[2023-04-21] MEDS ORDERED: OLANZapine 5 MG TAB PO ONE (16:15)
[2023-04-21] MEDS ORDERED: OLANZapine 5 MG TAB PO PRN (16:15)
[2023-04-21] MEDS ORDERED: diphenhydrAMINE 50MG CAP PO PRN (16:15)
[2023-04-21 20:59] VITALS: BP 111/62; TEMP 98.2; O2SAT 95
[2023-04-21] MEDS: ENOXAPARIN 40MG/0.4ML SYRINGE (J1650 PER 10MG) SC SCH ×2 (21:00→21:24)
[2023-04-22 06:24] VITALS: BP 120/65; TEMP 98.1; O2SAT 93
[2023-04-22 09:00] VITALS: BP 124/75
[2023-04-22] MEDS: amLODIPine 5 MG TAB PO SCH (09:00)
[2023-04-22] MEDS: DULoxetine 30MG CAPSULE (CYMBALTA) PO SCH (09:02)
[2023-04-22] MEDS: OMEPRAZOLE 20MG CAP PO SCH (09:02)
[2023-04-22] MEDS: guaiFENesin ER 600 MG TAB PO SCH (09:03)
[2023-04-22] MEDS: POTASSIUM CHLORIDE 10MEQ SR TABLET PO SCH (09:03)
[2023-04-22] MEDS: VITAMIN D 1,000 INTERNATIONAL UNITS TABLET PO SCH (09:03)
[2023-04-22] MEDS: ATORVASTATIN 20 MG TAB PO SCH (09:03)
[2023-04-22] MEDS: ACETAMINOPHEN TAB 650MG DOSE (2X325MG) PO PRN (09:04)
[2023-04-22] MEDS ORDERED: OLAN1TAB16 PO (11:15)
[2023-04-22] MEDS ORDERED: VITAD1000T PO (11:15)
[2023-04-22] MEDS ORDERED: DIPH50CA PO (11:15)
[2023-04-22] MEDS ORDERED: RAME8TAB2 PO (11:15)
[2023-04-22] MEDS ORDERED: POTA-136 PO (11:15)
== END 2023-04-22 13:11 | disposition home or self-care (01) | DRG 309 ==
LOC: EDBD 15:11 → M ED 15:11 → M ED INP 18:32 → M MSPAV 20:03 → M PCU 04-13 07:58 → M MSPAV 04-20 11:40
PROVIDERS: ADMIT Student in an Organized Health Care Education/Training Program; ATTEND Family Medicine
DX: I49.5 Sick sinus syndrome (principal); J96.11 Chronic respiratory failure with hypoxia; F03.90 Unspecified dementia, unspecified severity, without behavioral disturbance, psychotic disturbance, mood disturbance, and anxiety; J44.9 Chronic obstructive pulmonary disease, unspecified; E87.6 Hypokalemia; E83.42 Hypomagnesemia; E55.9 Vitamin D deficiency, unspecified; T46.2X5A Adverse effect of other antidysrhythmic drugs, initial encounter; I49.1 Atrial premature depolarization; I10 Essential (primary) hypertension; I49.8 Other specified cardiac arrhythmias; Z99.81 Dependence on supplemental oxygen; I95.1 Orthostatic hypotension; Z86.711 Personal history of pulmonary embolism; Z79.899 Other long term (current) drug therapy; Z91.041 Radiographic dye allergy status; Z87.891 Personal history of nicotine dependence; Z88.8 Allergy status to other drugs, medicaments and biological substances

== ENCOUNTER 2024-02-05 15:30 | Emergency (ER) | payer MEDICARE ==
[~2024-02-05] VITALS: Ht 160 cm; Wt 61.5 kg
[~2024-02-05 15:30] MED LIST changes: +ALBU8.5H INH; +AMIO200T49 PO; +ATOR40TA75 PO; +D 1010004 PO; +DIPH50CA PO; +OLAN1TAB16 PO; +POTA-136 PO; +RAME8TAB2 PO; +VITAD1000T PO
[2024-02-05 16:10] LABS: BASO % 0.5 % (0.0-1.0); EOS # 0.2 10^3/uL (0.0-0.5); EOS % 2.5 % (0.0-3.0); HEMOGLOBIN 13.2 g/dl (12.0-15.5); LYMPH # 1.5 10^3/uL (1.5-5.0); LYMPH % 25.2 % (24.0-44.0); MEAN CORPUSCULAR HEMOGLOBIN 29.5 pg (27.0-33.0); MEAN CORPUSCULAR HGB CONC 32.2 g/dl (32.0-36.5); MEAN CORPUSCULAR VOLUME 91.7 fl (80.0-96.0); MONO # 0.6 10^3/uL (0.0-0.8); MONO % 9.4 % (2.0-8.0); NEUTROPHILS # 3.8 10^3/uL (1.5-8.5); NEUTROPHILS % 62.2 % (36.0-66.0); PLATELET COUNT, AUTOMATED 159 10^3/uL (150-450); RED BLOOD COUNT 4.47 10^6/uL (4.00-5.40); WHITE BLOOD COUNT 6.1 10^3/uL (4.0-10.0)
[2024-02-05 16:22] LABS: CK-MB VALUE MASS 1.4 NG/ML (<3.6); LIPASE 39 U/L (12-53)
[2024-02-05 16:24] LABS: ALBUMIN 3.3 G/DL (3.2-5.2); ALKALINE PHOSPHATASE 70 U/L (46-116); ALT/SGPT 11 U/L (7.0-40); AST/SGOT 10 U/L (<34); BILIRUBIN,DIRECT 0.1 MG/DL (<0.4); BILIRUBIN,TOTAL 0.4 MG/DL (0.3-1.2); BLOOD UREA NITROGEN 19 MG/DL (9-23); CALCIUM LEVEL 9.1 MG/DL (8.3-10.6); CARBON DIOXIDE LEVEL 33 MMOL/L (20-31); CHLORIDE LEVEL 107 MMOL/L (98-107); CPK CREATINE PHOSPHOKINASE 91 U/L (34-145); CREATININE FOR GFR 0.94 MG/DL (0.55-1.30); GLOMERULAR FILTRATION RATE > 60.0 (>39); GLUCOSE, FASTING 102 MG/DL (74-106); MB/CK RELATIVE INDEX 1.53 (< OR =4); SODIUM LEVEL 143 MMOL/L (136-145); TOTAL PROTEIN 5.9 G/DL (5.7-8.2)
[2024-02-05 16:45] VITALS: BP 177/91; TEMP 98.5; O2SAT 96
[2024-02-05] MEDS: POTASSIUM CHLORIDE 10MEQ SR TABLET PO ONE (16:53)
== END 2024-02-05 17:04 | disposition left against medical advice (07) ==
LOC: EDBD 15:30 → M ED 15:30
DX: R07.9 Chest pain, unspecified (principal); N64.4 Mastodynia; R00.1 Bradycardia, unspecified; J44.9 Chronic obstructive pulmonary disease, unspecified; Z87.891 Personal history of nicotine dependence; Z88.8 Allergy status to other drugs, medicaments and biological substances; Z91.040 Latex allergy status; Z91.041 Radiographic dye allergy status; Z79.51 Long term (current) use of inhaled steroids; Z79.899 Other long term (current) drug therapy; Z53.9 Procedure and treatment not carried out, unspecified reason

== ENCOUNTER 2024-04-25 22:14 | Observation (INO) | payer MEDICARE ==
[~2024-04-25] VITALS: Ht 160 cm; Wt 61.5 kg
[2024-04-25 23:42] LABS: BASO % 0.5 % (0.0-1.0); EOS # 0.1 10^3/uL (0.0-0.5); EOS % 1.2 % (0.0-3.0); HEMATOCRIT 42.6 % (36.0-47.0); HEMOGLOBIN 13.7 g/dl (12.0-15.5); LYMPH # 1.2 10^3/uL (1.5-5.0); LYMPH % 20.7 % (24.0-44.0); MEAN CORPUSCULAR HEMOGLOBIN 29.4 pg (27.0-33.0); MEAN CORPUSCULAR HGB CONC 32.2 g/dl (32.0-36.5); MEAN CORPUSCULAR VOLUME 91.4 fl (80.0-96.0); MONO # 0.4 10^3/uL (0.0-0.8); MONO % 7.4 % (2.0-8.0); NEUTROPHILS # 4.1 10^3/uL (1.5-8.5); NEUTROPHILS % 69.9 % (36.0-66.0); PLATELET COUNT, AUTOMATED 159 10^3/uL (150-450); RED BLOOD COUNT 4.66 10^6/uL (4.00-5.40); WHITE BLOOD COUNT 5.9 10^3/uL (4.0-10.0)
[2024-04-26 00:08] LABS: BLOOD UREA NITROGEN 17 MG/DL (9-23); CALCIUM LEVEL 9.4 MG/DL (8.3-10.6); CARBON DIOXIDE LEVEL 29 MMOL/L (20-31); CHLORIDE LEVEL 105 MMOL/L (98-107); CREATININE FOR GFR 0.93 MG/DL (0.55-1.30); GLOMERULAR FILTRATION RATE > 60.0 (>39); GLUCOSE, FASTING 101 MG/DL (74-106); MAGNESIUM LEVEL 1.9 MG/DL (1.8-2.4); POTASSIUM SERUM 3.3 MMOL/L (3.5-5.1); SODIUM LEVEL 141 MMOL/L (136-145)
[2024-04-26] MEDS ORDERED: HOME MED LIST COMPLETE! XX SCH (02:05)
[2024-04-26] MEDS: POTASSIUM CHLORIDE 10MEQ SR TABLET PO ONE (11:20)
[2024-04-26] MEDS: amLODIPine 5 MG TAB PO SCH (11:21)
[2024-04-26] MEDS: OMEPRAZOLE 20MG CAP PO SCH (11:22)
[2024-04-26] MEDS: ATORVASTATIN 20 MG TAB PO SCH (11:23)
[2024-04-26] MEDS: DULoxetine 30MG CAPSULE (CYMBALTA) PO SCH (11:23)
[2024-04-26] MEDS: RAMELTEON 8 MG TAB (ROZEREM) PO PRN (22:12)
[2024-04-27 17:15] VITALS: BP 168/92; TEMP 97.9; O2SAT 97
[2024-04-27 20:08] VITALS: BP 138/92; TEMP 97.3; O2SAT 96
[2024-04-28 04:41] VITALS: BP 133/81; TEMP 97.7; O2SAT 95
[2024-04-28 12:21] VITALS: BP 124/89; TEMP 97.7; O2SAT 95
[2024-04-28] MEDS: ACETAMINOPHEN 325 MG TAB PO PRN (13:59)
[2024-04-28 20:18] VITALS: BP 145/88; TEMP 97; O2SAT 94
[2024-04-29 05:16] VITALS: BP 137/83; TEMP 97.9; O2SAT 94
[2024-04-29 12:00] VITALS: BP 118/73; TEMP 97.7; O2SAT 94
[2024-04-29 20:13] VITALS: BP 128/88; TEMP 97.2; O2SAT 95
[2024-04-30 04:27] VITALS: BP_SYST 118; BP_SYST 121; BP_DIAS 66; BP_DIAS 75; TEMP 98.1; TEMP 99.1; O2SAT 91; O2SAT 96
[2024-04-30 12:00] VITALS: BP 120/81; TEMP 97.9; O2SAT 97
[2024-04-30 20:09] VITALS: BP 140/77; TEMP 97.7; O2SAT 96
[2024-05-01 04:11] VITALS: BP 132/75; TEMP 98.2; O2SAT 93
[2024-05-01 12:06] VITALS: BP 127/79; TEMP 97.5; O2SAT 97
[2024-05-01 20:31] VITALS: BP 137/86; TEMP 97.7; O2SAT 95
[2024-05-02 05:32] VITALS: BP 137/86; TEMP 97.9; O2SAT 96
[2024-05-02 12:00] VITALS: BP 136/78; TEMP 97.7; O2SAT 96
[2024-05-02 19:57] VITALS: BP 132/81; TEMP 97.9; O2SAT 96
[2024-05-04 09:02] LABS: BASO % 0.6 % (0.0-1.0); EOS # 0.1 10^3/uL (0.0-0.5); EOS % 1.9 % (0.0-3.0); HEMATOCRIT 44.4 % (36.0-47.0); HEMOGLOBIN 14.2 g/dl (12.0-15.5); LYMPH # 1.4 10^3/uL (1.5-5.0); LYMPH % 26.1 % (24.0-44.0); MEAN CORPUSCULAR HEMOGLOBIN 29.8 pg (27.0-33.0); MEAN CORPUSCULAR VOLUME 93.1 fl (80.0-96.0); MONO # 0.3 10^3/uL (0.0-0.8); MONO % 6.4 % (2.0-8.0); NEUTROPHILS # 3.4 10^3/uL (1.5-8.5); NEUTROPHILS % 64.6 % (36.0-66.0); PLATELET COUNT, AUTOMATED 211 10^3/uL (150-450); RED BLOOD COUNT 4.77 10^6/uL (4.00-5.40); WHITE BLOOD COUNT 5.3 10^3/uL (4.0-10.0)
[2024-05-04 09:32] LABS: ALBUMIN 3.3 G/DL (3.2-5.2); ALKALINE PHOSPHATASE 83 U/L (46-116); ALT/SGPT 18 U/L (7.0-40); AST/SGOT 14 U/L (<34); BILIRUBIN,TOTAL 0.5 MG/DL (0.3-1.2); BLOOD UREA NITROGEN 12 MG/DL (9-23); CALCIUM LEVEL 9.4 MG/DL (8.3-10.6); CARBON DIOXIDE LEVEL 31 MMOL/L (20-31); CHLORIDE LEVEL 107 MMOL/L (98-107); CREATININE FOR GFR 0.82 MG/DL (0.55-1.30); GLOMERULAR FILTRATION RATE > 60.0 (>39); GLUCOSE, FASTING 102 MG/DL (74-106); MAGNESIUM LEVEL 1.8 MG/DL (1.8-2.4); SODIUM LEVEL 141 MMOL/L (136-145); TOTAL PROTEIN 6.1 G/DL (5.7-8.2)
[2024-05-04 10:03] VITALS: BP 126/80
== END 2024-05-04 11:50 ==
LOC: M ED 22:14 → M ED INP 04-27 13:21 → M MS5PR 04-27 17:10
PROVIDERS: ADMIT Student in an Organized Health Care Education/Training Program; ATTEND Hospitalist
DX: F03.90 Unspecified dementia, unspecified severity, without behavioral disturbance, psychotic disturbance, mood disturbance, and anxiety (principal); M25.551 Pain in right hip; I10 Essential (primary) hypertension; J44.9 Chronic obstructive pulmonary disease, unspecified; Z99.81 Dependence on supplemental oxygen; Z86.711 Personal history of pulmonary embolism; F10.11 Alcohol abuse, in remission; R00.9 Unspecified abnormalities of heart beat; Z74.2 Need for assistance at home and no other household member able to render care; R07.9 Chest pain, unspecified; Z91.040 Latex allergy status; Z91.041 Radiographic dye allergy status; Z88.8 Allergy status to other drugs, medicaments and biological substances; Z79.899 Other long term (current) drug therapy
CPT/HCPCS: 36415; 71045; 80048; 80053; 83735; 85025; 87486; 87581; 87633; 87635; 87798; 99284; G0378